=== PATIENT | male | born 1990 | race Asian ===

== ENCOUNTER 2020-07-05 18:09 | Emergency (ER) | payer SELFPAY ==
[~2020-07-05] VITALS: Ht 167.6 cm; Wt 95.5 kg
[2020-07-05] MEDS ORDERED: NAPROXEN 250 MG TABLET PO ONE (18:45)
[2020-07-05 19:36] VITALS: BP 130/87
== END 2020-07-05 20:04 | disposition home or self-care (01) ==
LOC: EMS 18:12
DX: G44.209 Tension-type headache, unspecified, not intractable (principal)
CPT/HCPCS: 99282; Z7502; Z7610